=== PATIENT | female | born 2000 | race Caucasian/White ===

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

== ENCOUNTER 2021-02-08 15:45 | Emergency (ER) | payer BC, SELFPAY ==
[2021-02-08 16:04] VITALS: BP 103/78; PULSE 77; RESP 16; TEMP 37.4; O2SAT 100; BMI 21.2
[2021-02-08 16:09] LABS: UTC Strep Screen (Rapid) Negative (Negative)
--- NOTE | 2021-02-08 16:33 | HMH.EDUTC ---
[facility] [place] Dis[place] Clinical Impression: URI (upper respiratory infection) Qualifiers: URI type: unspecified viral URI Qualified Code(s): J06.9 - Acute upper respiratory infection, unspecified Disposition: Home, Self-Care Condition on Discharge: Good Instructions: DI for Viral Upper Respiratory Infection -- Adult Additional Instructions: No sign of a bacterial infection. Likely viral. Viruses can take 7-14 days to run their course. Nasal saline and bulb syringe or nose Malinda to remove nasal drainage to help with nasal congestion. Hard to eat, drink, sleep with nasal congestion so important to keep this cleaned out. Monitor temp. Tylenol or Motrin as needed for pain or fever Encourage fluids, water, Gatorade, Powerade, Pedialyte if /toddler/child Warm salt water gargles Warm fluids Sore throat lozenges Sleep elevated Humidifier/vaporizer Follow-up immediately for new or worsening symptoms or no noticeable improvement over the next 48-72 hours. Prescriptions: Fluticasone Propionate [Flonase 50mcg nasal spray 16gm] 1 spr NS DAILY 14 Days #9.9 ml Transmission Status: Pending to [id number] Referrals: Marion Carter PA [Primary Care Provider] - Time of Disposition: 16:36 Medical Decision Making - Jayme Inquiry Pt receiving controlled substance: No Vital Signs: 02/08/21 16:04 Temperature 99.3 F Temperature Source Oral Pulse Rate [Left Radial] 77 Respiratory Rate 16 Blood Pressure [Left Arm] 103/78 L Blood Pressure Mean [Left Arm] 86 Blood Pressure Source [Left Arm] Automatic Cuff Blood Pressure Position [Left Arm] Sitting 02 Sat by Pulse Oximetry 100 Oxygen Delivery Method Room Air - Lab Data Lab Results 02/08/21 15:57: Strep [facility] Negative Orders (Tests/Meds): ORDERS Category Date Time Status Strep Screen Confirmation Routine Micro 02/08/21 15:57 Received [facility] [place] HPI - General Chief complaint: Urgent [facility] Stated complaint: cough, congestion Time Seen by Provider: 02/08/21 16:33 Mode of Arrival: Ambulatory Source of Information: Patient Limitations: No Limitations Description of Symptoms (Recalled from Triage Doc. by RN): C/O cough and congestion HEENT Symptoms (Recalled from RN notes): No Resp Symptoms (Recalled from RN notes): Yes (cough and congestion) Skin Symptoms (Recalled from RN notes): No MS Symptoms (Recalled from RN notes): No Functional Status (Recalled from RN notes): n/a - History of Present Illness Provider Complaint: 20 yr old female presents for cough, clear nasal congestion and sore throat. pt does not want covid tested - Related Data Home Medications Medication Instructions Recorded Confirmed copper 380 square mm intrauterine INTRAUTERI 11/28/20 device Previous Rx's Medication Instructions Recorded levonorgestrel 1 device INTRAUTERI ONCE #1 each 11/17/20 escitalopram oxalate 20 mg tablet 20 mg PO DAILY #90 tab 12/14/20 Fluticasone Propionate [Flonase 1 spr NS DAILY 14 Days #9.9 ml 02/08/21 50mcg nasal spray 16gm] Allergies Allergy/AdvReac Type Severity Reaction Status Date / Time No Known Allergies Allergy Verified 11/28/20 09:37 - Worker's Comp Is this a Worker's Comp case?: No [facility] History - Hepatitis A Screen Drug use history?: No High risk sexual behaviors?: No History of sexually transmitted infection?: No Currently employed?: No Childcare worker?: No Do you have indoor plumbing?: Yes Do you have electricity?: Yes Attestation statement:: This patient has been screened for Hepatitis A risk factors. I have reviewed the patient's past medical history: Yes Medical History: Reports:: Anxiety Denies:: Cancer, Diabetes Mellitus Type 1, Diabetes Mellitus Type 2, MRSA Laterality Cases: Bilateral: Tonsillectomy Other Surgeries: Yes: No Previous Surgery, Other Amputation: No Fractures: No - Social History Smoking Status: Never smoker Alcohol Intake: never Alcohol Inta
[2021-02-08 16:37] VITALS: BP 103/78; PULSE 77; RESP 16; TEMP 37.4; O2SAT 100
== END 2021-02-08 16:38 | disposition home or self-care (01) ==
PROVIDERS: Emergency Provider Nurse Practitioner Family; PCP Physician Assistant
DX: J06.9 Acute upper respiratory infection, unspecified (principal)
CPT/HCPCS: 87880; 99202; G0463

== ENCOUNTER 2021-04-09 15:10 | Emergency (ER) | payer BC, SELFPAY ==
[2021-04-09 15:20] VITALS: BP 111/76; PULSE 74; RESP 16; TEMP 36.7; O2SAT 98; BMI 22.3
--- NOTE | 2021-04-09 16:07 | HMH.EDUTC ---
[facility] [place] Disposition Clinical Impression: Headache Qualifiers: Headache type: unspecified Headache chronicity pattern: unspecified pattern Intractability: not intractable Qualified Code(s): R51.9 - Headache, unspecified Disposition: Home, Self-Care Condition on Discharge: Good Instructions: Migraine -- Adult Additional Instructions: If you continue to have headache make sure to follow up and get Eye Exam changes in vision can cause headaches FOllow up with your Family Doctor if you continue to have headaches for further evaluation and examination Straight to ER if you have the worse headache of your life Go home and try to sleep off remainder of migraine headache Return if needed Referrals: Marion Carter PA [Primary Care Provider] - As needed Forms: Work/School Release Time of Disposition: 16:36 Medical Decision Making - Jayme Inquiry Pt receiving controlled substance: No Jayme was queried for this patient: No Vital Signs: 04/09/21 15:20 Temperature 98.0 F Temperature Source Oral Pulse Rate [Right Brachial] 74 Respiratory Rate 16 Blood Pressure [Right Arm] 111/76 Blood Pressure Mean [Right Arm] 87 Blood Pressure Source [Right Arm] Automatic Cuff Blood Pressure Position [Right Arm] Sitting 02 Sat by Pulse Oximetry 98 Oxygen Delivery Method Room Air - Lab Data Lab results reviewed: Yes: I reviewed the patient's lab results. Lab Results 04/09/21 16:07: [facility] Negative Orders (Tests/Meds): ED MEDICATIONS Discontinued Medications Generic Name Dose Route Start Last Admin Trade Name Gustavo PRN Reason Stop Dose Admin Ketorolac Tromethamine 30 mg 04/09/21 16:17 04/09/21 16:28 Ketorolac 60mg/2ml Vial IM 04/09/21 16:18 30 mg ONCE ONE Administration Ondansetron HCl 4 mg 04/09/21 16:17 04/09/21 16:28 Ondansetron 4mg Odt SL 04/09/21 16:18 4 mg ONCE ONE Administration Medical Decision Narrative: Medication discussed with Pharmacy Patient state that headache now gone and feeling much better patient dc home [facility] [place] HPI - General Stated complaint: JACKSON Time Seen by Provider: 04/09/21 16:10 Mode of Arrival: Ambulatory Source of Information: Patient Limitations: No Limitations Description of Symptoms (Recalled from Triage Doc. by RN): PATIENT C/O HEADACHES ON AND OFF X 1 MONTH HEENT Symptoms (Recalled from RN notes): Yes Resp Symptoms (Recalled from RN notes): No Skin Symptoms (Recalled from RN notes): No MS Symptoms (Recalled from RN notes): No Functional Status (Recalled from RN notes): WNL - History of Present Illness Provider Complaint: Patient state that she has been having headaches on and off for a month States that today she was having another headache so she came in to see if she could get something to help Denies vision changes and denies worse headache of her life - Related Data Home Medications Medication Instructions Recorded Confirmed Escitalopram Oxalate 20 mg PO DAILY 04/09/21 04/09/21 Allergies Allergy/AdvReac Type Severity Reaction Status Date / Time No Known Allergies Allergy Verified 11/28/20 09:37 - Worker's Comp Is this a Worker's Comp case?: No [facility] History - Hepatitis A Screen Drug use history?: No High risk sexual behaviors?: No History of sexually transmitted infection?: No Currently employed?: No Childcare worker?: No Do you have indoor plumbing?: Yes Do you have electricity?: Yes Attestation statement:: This patient has been screened for Hepatitis A risk factors. I have reviewed the patient's past medical history: Yes Medical History: Reports:: Anxiety Denies:: Cancer, Diabetes Mellitus Type 1, Diabetes Mellitus Type 2, MRSA Laterality Cases: Bilateral: Tonsillectomy Other Surgeries: Yes: No Previous Surgery, Other Amputation: No Fractures: No - Social History Smoking Status: Never smoker Alcohol Intake: never Alcohol Intake Frequency:: a few times a month Substance Use Type: denies use O
[2021-04-09 16:15] LABS: UTC Pregnancy Test, Urine Negative (Negative)
[2021-04-09 16:35] VITALS: BP 111/76; PULSE 74; RESP 16; TEMP 36.7; O2SAT 98
== END 2021-04-09 16:40 | disposition home or self-care (01) ==
PROVIDERS: Emergency Provider Nurse Practitioner; PCP Physician Assistant
DX: R51.9 Headache, unspecified (principal); F41.9 Anxiety disorder, unspecified
CPT/HCPCS: 81025; 96372; 99202; G0463

== ENCOUNTER → 2021-04-10 14:04 | Outpatient (POV) | payer BC, SELFPAY | PROVIDERS: Visit Provider Dermatology | DX: Z00.00 Encounter for general adult medical examination without abnormal findings (principal) ==

== ENCOUNTER 2021-05-15 10:43 | Emergency (ER) | payer BC, SELFPAY ==
[2021-05-15 11:25] VITALS: BP 99/68; PULSE 82; RESP 18; TEMP 37.3; O2SAT 100; BMI 22.1
--- NOTE | 2021-05-15 11:52 | HMH.EDUTC ---
[facility] [place] Clinical Impression: Pharyngitis Qualifiers: Pharyngitis/tonsillitis etiology: unspecified etiology Qualified Code(s): J02.9 - Acute pharyngitis, unspecified Disposition: Home, Self-Care Condition on Discharge: Good Instructions: Strep Throat, DI for Strep Throat Additional Instructions: Drink plenty of fluids. Take tylenol or ibuprofen for pain or fever. Take the medications as directed. Follow up with your regular doctor. GO TO THE ER FOR ANY WORSENING SYMPTOMS Prescriptions: Brompheniramine/Pseudoephed/Dm [Bromfed Dm Cough Syrup] 5 ml PO Q6HP PRN #240 ml PRN Reason: Cough Transmission Status: Received by [facility] Amoxicillin [Amoxicillin 500mg Tab] 500 mg PO TID 10 Days #30 tab Transmission Status: Received by [facility] predniSONE [Deltasone 10mg tablet] 10 mg PO BID 3 Days #6 tab Transmission Status: Received by [facility] Sodium Chloride [Saline Nasal Essie] 1 spray NS BID #120 ml Transmission Status: Received by [facility] Referrals: Marion Carter PA [Primary Care Provider] - Forms: Work/School Release Time of Disposition: 12:03 Medical Decision Making - Medical Records Medical records reviewed: No: I reviewed the patient's medical records. - Jayme Inquiry Pt receiving controlled substance: No Vital Signs: 05/15/21 11:25 05/15/21 12:09 Temperature 99.2 F 99.2 F Temperature Source Oral Pulse Rate 82 Pulse Rate [Right Brachial] 82 Respiratory Rate 18 18 Blood Pressure 99/68 L Blood Pressure [Right Arm] 99/68 L Blood Pressure Mean [Right Arm] 78 Blood Pressure Source [Right Arm] Automatic Cuff Blood Pressure Position [Right Arm] Sitting 02 Sat by Pulse Oximetry 100 Oxygen Delivery Method Room Air - Lab Data Lab results reviewed: Yes: I reviewed the patient's lab results. Lab Results 05/15/21 11:38: Group A Strep Rapid Negative Orders (Tests/Meds): ORDERS Category Date Time Status Covid-19 Nasal PCR ([facility]) Routine Lab 05/15/21 12:00 Received Strep Screen Confirmation Stat Micro 05/15/21 11:38 [place] [facility] [place] - General Stated complaint: congestion Time Seen by Provider: 05/15/21 11:52 Mode of Arrival: Ambulatory Source of Information: Patient Limitations: No Limitations Description of Symptoms (Recalled from Triage Doc. by RN): PATIENT C/O COUGH, CONGESTION, AND EAR PAIN X 4 DAYS. REQUESTING STREP TEST HEENT Symptoms (Recalled from RN notes): Yes Resp Symptoms (Recalled from RN notes): Yes Skin Symptoms (Recalled from RN notes): No MS Symptoms (Recalled from RN notes): No Functional Status (Recalled from RN notes): WNL - History of Present Illness Provider Complaint: She states that she has had a sore throat and ear pain for the past 3 days. - Related Data Home Medications Medication Instructions Recorded Confirmed Escitalopram Oxalate 20 mg PO DAILY 04/09/21 05/15/21 Previous Rx's Medication Instructions Recorded Amoxicillin [Amoxicillin 500mg Tab] 500 mg PO TID 10 Days #30 tab 05/15/21 Brompheniramine/Pseudoephed/Dm 5 ml PO Q6HP PRN #240 ml 05/15/21 [Bromfed Dm Cough Syrup] Sodium Chloride [Saline Nasal 1 spray NS BID #120 ml 05/15/21 Essie] predniSONE [Deltasone 10mg tablet] 10 mg PO BID 3 Days #6 tab 05/15/21 Allergies Allergy/AdvReac Type Severity Reaction Status Date / Time No Known Allergies Allergy Verified 11/28/20 09:37 - Worker's Comp Is this a Worker's Comp case?: No [facility] History - Hepatitis A Screen Drug use history?: No High risk sexual behaviors?: No History of sexually transmitted infection?: No Currently employed?: No Childcare worker?: No Do you have indoor plumbing?: Yes Do you have electricity?: Yes Attestation statement:: This patient has been screened for Hepatitis A risk factors. I have reviewed the patient's past medical history: Yes Medical History: Reports:: Anxiety Denies:: Cancer, Diabetes Me
[2021-05-15 11:58] LABS: Strep Scrn Group A (Rapid) Negative (Negative)
[2021-05-15 12:09] VITALS: BP 99/68; PULSE 82; RESP 18; TEMP 37.3; O2SAT 100
== END 2021-05-15 12:10 | disposition home or self-care (01) ==
PROVIDERS: Emergency Provider Nurse Practitioner Family; PCP Physician Assistant
DX: J02.9 Acute pharyngitis, unspecified (principal); F41.9 Anxiety disorder, unspecified; Z20.822 Contact with and (suspected) exposure to COVID-19
CPT/HCPCS: 87430; 99203; C9803; G0463; U0003; U0005

== ENCOUNTER 2021-08-27 11:23 | Emergency (ER) | payer BC, SELFPAY ==
[2021-08-27 12:00] VITALS: BP 119/75; PULSE 84; RESP 19; TEMP 36.9; O2SAT 100; BMI 21.2
--- NOTE | 2021-08-27 12:33 | HMH.EDUTC ---
[facility] [place] Disposition Clinical Impression: Gastroenteritis Disposition: Home, Self-Care Condition on Discharge: Good Instructions: Diarrhea, Nausea and Vomiting-Adult Additional Instructions: Drink extra fluids with and between meals. If you have difficulty drinking, try very small amounts of water or suck on ice chips. ? Avoid fruit juices, as these do not replace minerals and can actually increase diarrhea. ? Children and adults can use sports drinks to replenish electrolytes. Younger children and infants should use products formulated for children, like oral rehydration solutions. ? Eat food in small amounts and let your stomach recover. ? Get lots of rest. You may feel tired or weak. ? No greasy or fried foods for the next 24-48 hours BRAT diet Bananas Rice Apples and [place] ? Make sure to drink plenty of liquids ? Return if needed ? Straight to ER if any life threatening symptoms ? You was given an outpatient order for diarrhea panel, please collect specimen and bring back to outpatient lab then call back to the [facility] or follow up with family doctor for results ? Follow up with family doctor in the next 48-72 hours if no improvement or any worsening of symptoms Prescriptions: Dicyclomine HCl [Bentyl 10mg capsule] 10 mg PO TID PRN #15 cap PRN Reason: Cramping Transmission Status: Pending to [facility] Omeprazole [Omeprazole 20mg Capsule] 20 mg PO DAILY #30 cap Transmission Status: Pending to [facility] Promethazine HCl [Phenergan 12.5mg tablet] 12.5 mg PO Q6H PRN #10 tab PRN Reason: Nausea Transmission Status: Pending to [facility] Referrals: Marion Carter PA [Primary Care Provider] - As needed Forms: Work/School Release Time of Disposition: 13:03 Medical Decision Making - Jayme Inquiry Pt receiving controlled substance: No Jayme was queried for this patient: No Vital Signs: 08/27/21 12:00 Temperature 98.4 F Temperature Source Oral Pulse Rate [Right Brachial] 84 Respiratory Rate 19 Blood Pressure [Right Arm] 119/75 Blood Pressure Mean [Right Arm] 89 Blood Pressure Source [Right Arm] Automatic Cuff Blood Pressure Position [Right Arm] Sitting 02 Sat by Pulse Oximetry 100 Oxygen Delivery Method Room Air - Lab Data Lab results reviewed: Yes: I reviewed the patient's lab results. [facility] [place] HPI - General Stated complaint: nausea, fever, abd pain Time Seen by Provider: 08/27/21 12:33 Mode of Arrival: Ambulatory Source of Information: Patient Limitations: No Limitations Description of Symptoms (Recalled from Triage Doc. by RN): PATIENT C/O STOMACH ACHE, DIARRHEA, AND HEADACHE X 4 DAYS HEENT Symptoms (Recalled from RN notes): Yes Resp Symptoms (Recalled from RN notes): No Skin Symptoms (Recalled from RN notes): No MS Symptoms (Recalled from RN notes): No Functional Status (Recalled from RN notes): WNL - History of Present Illness Provider Complaint: Patient states that she has been having n/v/d for close to a week on and off for about a week States that she feels like everytime she eats it makes her stomach upset and she vomits States that she has never been dx with GERD but felt like she may have because when she lays down she belches up acid sometimes and it lomeli her throat States that yesterday her diarrhea was gone but today she had diarrhea again with N/V she took zofran but didnt help so she came in - Related Data Home Medications Medication Instructions Recorded Confirmed Escitalopram Oxalate 20 mg PO DAILY 04/09/21 05/29/21 clindamycin phosphate 1 % lotion 1 applic TOPICAL HS ml 05/29/21 05/29/21 spironolactone 100 mg tablet 100 mg PO DAILY tab 05/29/21 05/29/21 tretinoin 0.025 % topical cream 1 applic TOPICAL HS g 05/29/21 05/29/21 Previous Rx's Medication Instructions Recorded Sodium Chloride [Saline Nasal 1 spray NS BID #120 ml 05/15/21 [place]] Dicyclomine HCl [Bentyl 10mg 10 mg PO TID PRN #15 cap 08/27/21 capsule] Omeprazole [Ome
[2021-08-27 13:04] VITALS: BP 119/75; PULSE 84; RESP 19; TEMP 36.9; O2SAT 100
== END 2021-08-27 13:13 | disposition home or self-care (01) ==
PROVIDERS: Emergency Provider Nurse Practitioner; PCP Physician Assistant
DX: K52.9 Noninfective gastroenteritis and colitis, unspecified (principal); F41.9 Anxiety disorder, unspecified
CPT/HCPCS: 99212; G0463

== ENCOUNTER → 2021-08-29 13:42 | Outpatient (CLI) | payer BC, SELFPAY ==
[2021-08-29 14:11] LABS: Campylobacter Not Detected (NotDetected); Clostridium Difficile A/B, PCR Not Detected (NotDetected); Plesimonas Shigalloides, PCR Not Detected (NotDetected); Salmonella, PCR Not Detected (NotDetected); Vibrio, PCR Not Detected (NotDetected); Yersinia Entercolitica, PCR Not Detected (NotDetected)
[2021-08-29 14:12] LABS: Astrovirus Not Detected (NotDetected); Cryptosporidium Not Detected (NotDetected); Cyclospora Cayetanesis Not Detected (NotDetected); Entamoeba histolytica Not Detected (NotDetected); Enteroaggregative E coli Not Detected (NotDetected); Enteropathogenic E coli Not Detected (NotDetected); Enterotoxigenic E coli Not Detected (NotDetected); Giardia lamblia Not Detected (NotDetected); Norovirus Not Detected (NotDetected); Rotavirus A Not Detected (NotDetected); Sapovirus Not Detected (NotDetected); Shiga-like toxin E coli Not Detected (NotDetected); Shigella Enterovasive E coli Not Detected (NotDetected); Vibrio Cholerae Not Detected (NotDetected)
[2021-08-29 19:11] LABS: Adenovirus F 40/41, stool Detected (NotDetected)
== END ==
PROVIDERS: Visit Provider Nurse Practitioner
DX: R19.7 Diarrhea, unspecified (principal); B97.0 Adenovirus as the cause of diseases classified elsewhere
CPT/HCPCS: 87507

== ENCOUNTER 2023-12-19 09:25 | Outpatient (CLI) | payer BC, SELFPAY ==
--- NOTE | 2023-12-19 09:27 | US_ITS ---
PROCEDURE: US TRANSVAGINAL CLINICAL INDICATION: pelvic pain, dyspareunia, IUD in place COMPARISON: No exams were available for comparison FINDINGS: Transvaginal sonographic images of the pelvis were obtained. UTERUS: 6.8 cm x 4.4cmx 3.3cm anteverted with a combined endometrial thickness of 3.8mm. There is an IUD within the uterine cavity in the correct position. LEFT OVARY: 2.6 cmx2.6 cmx2.0cm with a volume of 7.2ml. There are multiple small peripheral follicles giving the ovary a polycystic appearance. RIGHT OVARY: 3.0cmx 2.7 cmx2.3cm with a volume of 9.6ml. There are multiple small peripheral follicles. There is a dominant follicle measuring 2.1 cm x 1.2 cm x 2.2 cm Both ovaries are seen and appear polycystic. Doppler flow to both ovaries are seen. There is trace fluid in the cul-de-sac. IMPRESSION: 1. Anteverted uterus normal in shape and size. The endometrium is thin. 2. There is an IUD within the uterine cavity in the correct position. 3. Both ovaries are seen and appear polycystic. 4. There is trace fluid in the cul-de-sac. Dictated by: Minh Rutledge MD 12/19/2023 16:56 Minh Rutledge MD in [place] 12/19/2023 16:56
== END 2023-12-19 23:59 | disposition home or self-care (01) ==
LOC: RAD 09:27
PROVIDERS: PCP Nurse Practitioner Family; Visit Provider Obstetrics & Gynecology
DX: R10.2 Pelvic and perineal pain (principal); N94.10 Unspecified dyspareunia; Z97.5 Presence of (intrauterine) contraceptive device
CPT/HCPCS: 76830

== ENCOUNTER 2024-02-17 07:58 | Emergency (ER) | payer BC, SELFPAY ==
[2024-02-17 08:10] VITALS: BP 126/83; PULSE 75; RESP 20; TEMP 36.8; O2SAT 98; BMI 24.0
--- NOTE | 2024-02-17 08:28 | ED_ITS ---
Discharge Plan Disposition Patient Disposition: Home, Self-Care Condition: Good Prescriptions Prescriptions: New acyclovir 5 % cream 1 applic topical 5XDAY 4 Days Qty: 5 0RF azithromycin [Zithromax] 250 mg tablet 250 mg PO UD DOSE PK Qty: 6 0RF Rx Instructions: Take two (2) tablets today, then one (1) tablet days #2 thru #5 methylprednisolone 4 mg Tablets,Dose Pack 4 mg PO DIRECTED 6 Days Qty: 21 0RF Rx Instructions: Take 1 pack as directed for 6 days [id number] [Bromfed DM] 2-30-10 mg/5 mL Syrup 5 ml PO Q6H PRN (Reason: Cough) Qty: 240 0RF No Action propranolol 20 mg tablet 20 mg PO DAILY Patient Comments: TAKE 1 TABLET BY MOUTH TWICE DAILY NEEDED olanzapine 7.5 mg tablet 7.5 mg PO DAILY escitalopram oxalate 20 mg tablet 20 mg PO DAILY Qty: 90 0RF buspirone 10 mg tablet 10 mg PO DAILY Referrals Follow up/Referrals: Dayna Smith APRN [Primary Care Provider] - See instructions Activity Restrictions/Add. Instructions Additional Instructions/Restrictions: Drink plenty of fluids. Take tylenol or ibuprofen for pain or fever. Take the medications as directed. Follow up with your regular doctor. GO TO THE ER FOR ANY WORSENING SYMPTOMS Clinical Impressions Clinical Impression: Otitis media, Sinusitis, Fever blister Stand Alone Forms Stand Alone Forms: Work/School Release Instructions Patient Instructions: Middle Ear Infection, DI for Sinusitis Print Language Print Language: Vietnamese Discharge ED Provider: Danny Samuels [facility] General Stated complaint: congestion, ear pain, sore throat Time Seen by Provider: 02/17/24 08:27 Related Data Home Medications ?Medication ?Instructions ?Recorded ?Confirmed propranolol 20 mg tablet 20 mg PO DAILY 12/12/23 02/17/24 olanzapine 7.5 mg tablet 7.5 mg PO DAILY 01/02/24 02/17/24 buspirone 10 mg tablet 10 mg PO DAILY 02/17/24 02/17/24 Previous Rx's ?Medication ?Instructions ?Recorded escitalopram oxalate 20 mg tablet 20 mg PO DAILY Anxiety #90 tabs 01/14/22 acyclovir 5 % topical cream 1 applic topical 5XDAY 4 days #5 02/17/24 grams azithromycin 250 mg tablet 250 mg PO UD DOSE PK #6 tabs 02/17/24 (Zithromax) dplrgyvkqzsrtwz-vvpkzubveqmalgy-[id number] 5 ml PO Q6H PRN Cough #240 mL 02/17/24 2 mg-30 mg-10 mg/5 mL oral syrup (Bromfed DM) methylprednisolone 4 mg tablets in 4 mg PO DIRECTED 6 days #21 tabs 02/17/24 a dose pack Allergies Allergy/AdvReac Type Severity Reaction Status Date / Time Penicillins Allergy Intermediate Hives Verified 01/02/24 09:16 [facility] Disclaimer: The information contained in this section may have been updated after the patient was seen, as this information can be updated by other users. Medical History Dysmenorrhea Pelvic pain Dyspareunia No significant medical problems Surgical History H/O oral surgery History of wisdom tooth extraction History of tonsillectomy Family History Other No significant family history Social History Smoking Status: Never smoker alcohol intake: never substance use type: denies use current occupational status: other Travel in the last 8 weeks: None household members: family housing: house number of children: 0 current occupation: Student ROS Obtained: Yes All systems reviewed & no additional complaints except as documented Constitutional Constitutional: Denies chills, Reports fever(s) and Reports poor appetite Eyes Eyes: Denies eye discharge ENT Ears, Nose, Mouth, and Throat: Denies ear discharge, Reports otalgia, Denies hearing loss, Denies sinus pain and Reports sore throat Cardiovascular Cardiovascular: Denies chest pain and Denies dyspnea Respiratory Respiratory: Denies chest congestion, Reports cough and Denies dyspnea Gastrointestinal Gastrointestingal: Denies abdominal pain, diarrhea, nausea or vomiting Musculoskeletal Musculoskeletal: Denies arthralgias Integumentary/Breasts Skin/Breast: Denies rash Physical Exam General General appearance: alert and in no apparent distress Head Head exam: atraumatic, normocephalic and normal inspection Eye Eye exam: Present normal appearance; Absent PERRL or EOMI ENT ENT exam: Present mucous membranes moist and normal external ear exam Expanded ENT Exam TM/Canal exam: Bilateral TM: erythema, bulging and effusion Nose exam: Absent sinus tenderness Nasal speculum exam: Bilateral: normal Mouth exam: Present normal external inspection and other; Absent drooling Teeth exam: Present normal inspection Throat exam: Present tonsillar erythema and tonsillomegaly Neck Neck exam: Present normal inspection, full ROM and trachea midline; Absent tenderness, meningismus or lymphadenopathy Chest Chest inspection: Present normal inspection and symmetric chest wall rise; Absent tenderness Respiratory Respiratory exam: Present normal lung sounds bilaterally; Absent respiratory distress, wheezes or stridor Cardiovascular Cardiovascular exam: Present regular rate, normal rhythm and normal heart sounds; Absent tachycardia or irregular rhythm Abdominal Exam Abdominal exam: Present soft and normal bowel sounds; Absent distention, tenderness, guarding, rebound or rigidity Extremities Exam Extremities exam: Present normal inspection and normal capillary refill; Absent tenderness, joint swelling or calf tenderness Back Exam Back exam: Present normal inspection and full ROM; Absent tenderness, CVA tenderness (R) or CVA tenderness (L) Neurological Exam Neurological exam: Present alert, oriented X3, CN II-XII intact, normal gait and reflexes normal; Absent motor sensory deficit Psychiatric Psychiatric exam: Present normal affect and normal mood Skin Skin exam: Present warm, dry, intact and normal color Lymphatic Lymphatic Findings: no adenopathy Medical Decision Making Medical Records Medical records reviewed: No I reviewed the patient's medical records. Screening: Per USPSTF and CDC recommendations, given the prevalence of disease in our region, it is our hospital?s policy to screen for HIV and viral Hepatitis for all patients aged 18 and over and those with ongoing risk factors. Jayme Inquiry Pt receiving controlled substance: No Lab Data Lab results reviewed: Yes I reviewed the patient's lab results.
[2024-02-17 08:32] LABS: UTC Influenza A Antigen Negative (Negative); UTC Influenza B Antigen Negative (Negative); UTC Strep Screen (Rapid) Negative (Negative)
[2024-02-17 08:55] VITALS: BP 126/83; PULSE 75; RESP 20; TEMP 36.8; O2SAT 98
== END 2024-02-17 09:00 | disposition home or self-care (01) ==
PROVIDERS: Emergency Provider Nurse Practitioner Family; PCP Nurse Practitioner Family
DX: H66.93 Otitis media, unspecified, bilateral (principal); J01.90 Acute sinusitis, unspecified
CPT/HCPCS: 87804; 87880; 99213; G0381